=== PATIENT | female | born 1990 | race Caucasian/White ===

== ENCOUNTER 2016-12-09 17:33 | Emergency (ER) | payer MEDICAID ==
[~2016-12-09] VITALS: Ht 154.9 cm; Wt 82.6 kg
[2016-12-09 21:36] VITALS: BP 122/68
== END 2016-12-09 20:19 | disposition home or self-care (01) ==
LOC: ED 17:33
DX: J06.9 Acute upper respiratory infection, unspecified (principal); R11.10 Vomiting, unspecified; H92.01 Otalgia, right ear

== ENCOUNTER 2017-01-01 15:39 | Emergency (ER) | payer MEDICAID ==
[~2017-01-01] VITALS: Ht 154.9 cm; Wt 83.9 kg
[2017-01-01 17:04] LABS: BASOPHIL % 0.5 % (0-2); PLATELET COUNT 294 x10^3mcL (130-400); RED CELL DISTRIBUTION WIDTH 13.9 % (11.5-14.5)
[2017-01-01 17:20] LABS: CALCIUM 8.8 mg/dL (8.5-10.1); CARBON DIOXIDE 29.2 mmol/L (21-32); CHLORIDE SERUM 102 mmol/L (98-107); CREATININE SERUM 0.7 mg/dL (0.6-1.0); GFR1 > 60 mL/min; GLUCOSE SERUM 109 mg/dL (74-106); POTASSIUM SERUM 3.9 mmol/L (3.5-5.1); SODIUM SERUM 138 mmol/L (136-145)
[2017-01-01 17:38] LABS: T4(THYROXINE) 13.5 ug/dL (4.7-13.3)
[2017-01-01 17:41] LABS: AMPHETAMINE QUAL UR NONE DETECTED (NEG <=1000)
[2017-01-01 18:00] VITALS: BP 123/77
== END 2017-01-01 18:00 | disposition home or self-care (01) ==
LOC: ED 15:39
PROVIDERS: Emergency Medicine
DX: R00.2 Palpitations (principal); R51 Headache; R07.89 Other chest pain; R03.0 Elevated blood-pressure reading, without diagnosis of hypertension; F41.9 Anxiety disorder, unspecified
CPT/HCPCS: 36415; Q0092

== ENCOUNTER 2018-12-18 08:17 | Emergency (ER) | payer SELFPAY ==
[~2018-12-18] VITALS: Ht 154.9 cm; Wt 70.8 kg
[2018-12-18 08:28] VITALS: Ht 154.9 cm; Wt 70.8 kg
[2018-12-18 10:36] VITALS: BP 114/78
== END 2018-12-18 10:36 | disposition home or self-care (01) ==
LOC: ED 08:17
DX: T78.1XXA Other adverse food reactions, not elsewhere classified, initial encounter (principal); X58.XXXA Exposure to other specified factors, initial encounter; Z88.8 Allergy status to other drugs, medicaments and biological substances; Z91.013 Allergy to seafood; Z91.018 Allergy to other foods
CPT/HCPCS: J1200; J2930; J3490